=== PATIENT | female | born 1970 | race Caucasian/White ===

== ENCOUNTER 2017-12-18 01:42 | Emergency (ER) | payer OTHER ==
[~2017-12-18] VITALS: Ht 167.6 cm; Wt 131.5 kg
[~2017-12-18 01:42] MED LIST: MTP100TCR PO
[2017-12-18] MEDS ORDERED: AMLO10TA2 (01:56)
[2017-12-18] MEDS ORDERED: HYDR12.5 (01:56)
[2017-12-18 02:14] VITALS: BP 152/98
--- NOTE | 2017-12-18 03:13 | ED Lower Extremity ---
General Chief Complaint: Lower Extremity Stated Complaint: LEFT FOOT INJURY- Nursing Triage Note: left foot pain Nursing Sepsis Screen: No Definite Risk Source: patient Exam Limitations: no limitations History of Present Illness Date Seen by Provider: Dec 18, 2017 Time Seen by Provider: 01:48 Initial Comments This 47-year-old woman presents to the emergency room with injury to the left foot. She accidentally struck her foot on a bed level her while at work. She has pain with weightbearing and walking. The incident happened several hours ago. She denies any other injuries. She had incidental findings of tachycardia in the 120s and significant hypertension on assessment. She also reports having "heartburn" intermittently in recent weeks but denies any chest pain at present. Patient has no known cardiac disease. Allergies and Home Medications Allergies Coded Allergies: No Known Drug Allergies (Unverified , 05/31/13) Patient Home Medication List Home Medication List Reviewed: Yes Constitutional: no symptoms reported EENTM: no symptoms reported Respiratory: no symptoms reported Cardiovascular: see HPI Gastrointestinal: see HPI : No Musculoskeletal: see HPI Skin: no symptoms reported Psychiatric/Neurological: No Symptoms Reported Past Oidtcxe-Iyaxtv-Sokcgj Hx Past Med/Social Hx: Reviewed Nursing Past Med/Soc Hx Patient Social History Alcohol Use: Denies Use Recreational Drug Use: No Smoking Status: Never a Smoker 2nd Hand Smoke Exposure: No Recent Foreign Travel: No Contact w/Someone Who Travel: No Recent Infectious Disease Expo: No Recent Hopitalizations: No Immunizations Up To Date Tetanus Booster (TDap): Unknown Seasonal Allergies Seasonal Allergies: No Past Medical History Surgeries: Yes Section Respiratory: No Cardiac: Yes Hypertension Neurological: No : No Reproductive Disorders: No Sexually Transmitted Disease: No Genitourinary: No Gastrointestinal: No Musculoskeletal: No Endocrine: No HEENT: No Cancer: No Psychosocial: No Integumentary: No Blood Disorders: No Family Medical History Reviewed Nursing Family Hx CAD Under 55 Years Old, Diabetes, Hypertension Physical Exam Vital Signs Vital Signs - First Documented 12/18/17 01:45 Temp 98.2 Pulse 118 Resp 18 B/P (MAP) 193/137 (155) Pulse Ox 100 O2 Delivery Room Air Capillary Refill : Less Than 3 Seconds Height, Weight, BMI Height: 5'6.00" Weight: 290lbs. oz. [id number]; 44.38 BMI Method:Stated General Appearance: WD/WN, no apparent distress, obese HEENT: PERRL/EOMI, normal ENT inspection Neck: normal inspection Cardiovascular: no edema, no murmur, tachycardia Respiratory: lungs clear, normal breath sounds, no respiratory distress, no accessory muscle use Gastrointestinal: normal bowel sounds, soft Legs: bilateral leg non-tender, bilateral leg normal inspection, bilateral leg normal range of motion, bilateral leg no evidence of injury, bilateral leg other (no calf tenderness, negative Thierry) Knees: bilateral knee non-tender, bilateral knee normal inspection, bilateral knee normal range of motion, bilateral knee no evidence of injury Ankles: left ankle non-tender, left ankle normal inspection, left ankle normal range of motion, left ankle no evidence of injury Feet: left foot normal inspection, left foot no evidence of injury, left foot bone tenderness (over the proximal anterior and lateral foot. 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 Thony wrap was applied. I expressed concern to the patient about her tachycardia and hypertension. Both did improve somewhat with rest. Patient denied having any chest pain at the time of the visit. I gave the patient options to workup her tachycardia, hypertension, and chest pain. I expressed my concern that she may have something dangerous or life-threatening. Such conditions that can cause these signs and symptoms include pulmonary embolism, heart disease, etc. Patient expressed understanding. However, she wishes to defer her workup to the outpatient setting. She had already planned to have her blood pressure checked at the [facility] clinic later today. She is concerned about billing problems she may incur if she conducts cardiovascular workup under an occupational health visit. Since patient understands the risks and has a plan to follow-up later today, she was dismissed after evaluation of her x-rays. Diagnostic Imaging Diagonstic Imaging: Xray Plain Films/CT/US/NM/MRI: other (left foot) Comments Left foot x-ray viewed by me. Report not yet available. No acute abnormalities appreciated. Departure Impression Primary Impression: Contusion of left foot Qualified Codes: S90.32XA - Contusion of left foot, initial encounter Additional Impressions: Hypertension Qualified Codes: I10 - Essential (primary) hypertension Tachycardia Chest discomfort Chest pain Disposition: HOME, SELF-CARE Condition: Stable Departure-Patient Inst. Referrals: VELASQUEZ LORENZO (PCP/Family) Primary Care Physician Patient Instructions: Chest Pain, Contusion (DC), High Blood Pressure (DC) Add. Discharge Instructions: You may take aspirin and Tylenol as previously instructed for pain. Elevation, compressive wrapping, and 20 minute intervals of icing may also be helpful. Return to care if symptoms worsen. Please see your primary care office today for your hypertension, high heart rate , and chest discomfort. You should probably also see Dr. Amado (the lopper you saw previously) for a follow-up visit. All discharge instructions reviewed with patient and/or family. Voiced understanding. Copy Copies To 1: JEANETTE MELENDEZ JOSHUA T MD Dec 18, 2017 03:13
[2017-12-18 03:15] VITALS: BP 149/92
--- NOTE | 2017-12-18 07:00 | Diagnostic Imaging Report ---
INDICATION: Left foot injury with pain. AP, oblique and lateral views of the left foot are obtained. FINDINGS: No definite acute fracture is identified. There is no abnormal lytic or sclerotic focus. There is mild plantar calcaneal spurring. Evaluation of the toes is somewhat limited due to flexion. IMPRESSION: No definite acute left foot abnormality is identified. Dictated by: Dictated on workstation # [id number]
== END 2017-12-18 03:20 | disposition home or self-care (01) ==
LOC: EDUNIT# 01:42 → ER 01:45
DX: S90.32XA Contusion of left foot, initial encounter (principal); I10 Essential (primary) hypertension; R00.0 Tachycardia, unspecified; R07.89 Other chest pain; Z82.49 Family history of ischemic heart disease and other diseases of the circulatory system; Z87.59 Personal history of other complications of pregnancy, childbirth and the puerperium; W22.03XA Walked into furniture, initial encounter; Y92.59 Other trade areas as the place of occurrence of the external cause; Y99.0 Civilian activity done for income or pay
CPT/HCPCS: 73630

== ENCOUNTER 2019-05-16 01:12 | Emergency (ER) | payer OTHER ==
[~2019-05-16] VITALS: Ht 170.1 cm; Wt 131.5 kg
[~2019-05-16 01:12] MED LIST changes: +AMLO10TA7; +HYDR12.5
--- NOTE | 2019-05-16 01:36 | ED Fall/Injury ---
General Chief Complaint: Trauma-Non Activation Stated Complaint: FELL AT WORK Source: patient Exam Limitations: no limitations History of Present Illness Date Seen by Provider: May 16, 2019 Time Seen by Provider: 01:18 Initial Comments Patient presents to ER by private conveyance from work at the [employer] in [facility]. About 15 minutes after midnight she was walking the trash out both of her feet slid out from behind her and she fell backwards onto her back. She did not strike her head nor she lose consciousness. She's not on any blood thinners. She has not taken anything for pain or had anything tonight. She does take Norvasc for hypertension. She's in some pain in her upper back between her shoulder blades and in her low back. She has no previous history of back pain fractures or surgery. She's been having some nausea and was being worked up outpatient by her primary care office at [facility] for possible gallbladder disease. She's not having any nausea presently. Allergies and Home Medications Allergies Coded Allergies: No Known Drug Allergies (Unverified , 05/31/13) Patient Home Medication List Home Medication List Reviewed: Yes Review of Systems Review of Systems Constitutional: No chills, No diaphoresis Eyes: Denies Blindness, Denies Drainage Ears, Nose, Mouth, Throat: denies ear pain, denies mouth pain Respiratory: No cough, No hemoptysis Cardiovascular: No chest pain, No palpitations Gastrointestinal: No abdominal pain, No nausea, No vomiting, No other All Other Systems Reviewed Negative Unless Noted: Yes Past Kvjqexo-Mqwsfh-Gbsbyf Hx Patient Social History Alcohol Use: Denies Use Recreational Drug Use: No Smoking Status: Never a Smoker 2nd Hand Smoke Exposure: No Recent Foreign Travel: No Contact w/Someone Who Travel: No Recent Hopitalizations: No Immunizations Up To Date Tetanus Booster (TDap): Unknown Seasonal Allergies Seasonal Allergies: No Past Medical History Surgeries: Yes Section Respiratory: No Cardiac: Yes Hypertension Neurological: No Reproductive Disorders: No Sexually Transmitted Disease: No Genitourinary: No Gastrointestinal: No Musculoskeletal: No Endocrine: No HEENT: No Cancer: No Psychosocial: No Integumentary: No Blood Disorders: No Family Medical History CAD Under 55 Years Old, Diabetes, Hypertension Physical Exam Vital Signs Vital Signs - First Documented 05/16/19 01:22 Temp 36.0 Pulse 84 Resp 20 B/P (MAP) 192/129 (150) Pulse Ox 99 O2 Delivery Room Air Capillary Refill : Height, Weight, BMI Height: 5'6.00" Weight: 290lbs. oz. 131.860342qy; 44.38 BMI Method:Stated General Appearance: WD/WN, no apparent distress HEENT: PERRL/EOMI, pharynx normal Neck: non-tender, full range of motion, supple, normal inspection Cardiovascular: normal peripheral pulses, regular rate, rhythm Respiratory: no respiratory distress, no accessory muscle use Back: vertebral tenderness (T8 through T10 as well as around L3 through L5 midl ine tender palpation.) Extremities: normal range of motion, normal inspection Neurologic/Psychiatric: alert, normal mood/affect, oriented x 3 Skin: normal color, warm/dry Progress/Results/Core Measures Results/Orders My Orders Orders - VERA CAMPBELL Thoracic Spine, 2 Views Only (05/16/19 01:28) Lumbar Spine - 2-3 Views (05/16/19 01:28) Vital Signs/I&O 05/16/19 05/16/19 01:22 01:22 Temp 36.0 36.0 Pulse 84 84 Resp 20 20 B/P (MAP) 192/129 (150) 192/129 (150) Pulse Ox 99 99 O2 Delivery Room Air Progress Progress Note : Time: 01:33 Progress Note Patient has very mild discomfort. Plan to obtain flat plate films to rule out fracture. She has declined anything for pain. We'll have her follow-up with primary care as necessary. Diagnostic Imaging Diagonstic Imaging: Xray Plain Films/CT/US/NM/MRI: other (thoracolumbar spine) Comments No acute osseous abnormality or malalignment. Reviewed: Reviewed by Me Departure Impression Primary Impression: Fall Qualified Codes: W19.XXXA - Unspecified fall, initial encounter Additional Impressions: Acute upper back pain Lower back pain Qualified Codes: M54.5 - Low back pain Disposition: 01 HOME, SELF-CARE Condition: Stable Departure-Patient Inst. Decision time for Depature: 02:09 Referrals: [facility] (PCP) Primary Care Physician VELASQUEZ LORENZO (Family) Primary Care Physician Patient Instructions: Low Back Pain (DC), Upper Back Pain Add. Discharge Instructions: Heating pads, topical creams and back braces are useful for back pain. Tylenol 1000 mg every 8 hours as needed for pain. Ibuprofen 800 mg every 8 hours as needed for pain. Continue taking her medications for blood pressure and follow-up with primary care. All discharge instructions reviewed with patient and/or family. Voiced understanding. Work/School Note: Work Release Form Date Seen in the Emergency Department: May 16, 2019 Return to Work: May 17, 2019 Restrictions: Need Release from Doctor Other Restrictions Listed Below: Do not lift, push or pull greater than 40 pounds until 05/23/19. VERA CAMPBELL May 16, 2019 01:36
[2019-05-16 02:10] VITALS: BP 145/97
--- NOTE | 2019-05-16 06:36 | Diagnostic Imaging Report ---
CLINICAL HISTORY: Fall. Back pain. COMPARISON: None TECHNIQUE: 2 views of the thoracic spine. FINDINGS: There is no acute fracture or dislocation of the thoracic spine. There is slight right convexity curvature of the midthoracic spine. No significant degenerative changes are present. No focal osseous lesions. The included chest and soft tissues are unremarkable. IMPRESSION: 1. No acute fracture or dislocation of the thoracic spine. Dictated by: Dictated on workstation # [id number]
--- NOTE | 2019-05-16 06:41 | Diagnostic Imaging Report ---
EXAMINATION: Lumbosacral spine 2 or 3 views HISTORY: Fall. Back pain. COMPARISON: None available. FINDINGS: There is no acute fracture or dislocation of the lumbar spine. There is grade 1 anterolisthesis of L5 on S1. The vertebral body heights are well maintained. Mild degenerative changes are present in the lumbar spine. The included soft tissues are unremarkable. IMPRESSION: 1. No acute fracture or dislocation in the lumbar spine. 2. Grade 1 anterolisthesis of L5 on S1. Dictated by: Dictated on workstation # [id number]
== END 2019-05-16 02:10 | disposition home or self-care (01) ==
LOC: EDUNIT# 01:12 → ER 01:16
DX: M54.6 Pain in thoracic spine (principal); M54.5 Low back pain; I10 Essential (primary) hypertension; Z82.49 Family history of ischemic heart disease and other diseases of the circulatory system; W01.0XXA Fall on same level from slipping, tripping and stumbling without subsequent striking against object, initial encounter
CPT/HCPCS: 72070; 72100

== ENCOUNTER 2019-06-07 23:52 | Emergency (ER) | payer OTHER ==
[~2019-06-07] VITALS: Ht 170 cm; Wt 122.3 kg
[2019-06-08] MEDS ORDERED: 1/2 NS IV SOLUTION 1,000 ML IV SCH ×2 (00:15→01:00)
[2019-06-08] MEDS ORDERED: ACETAMINOPHEN 500 MG TAB (TYLENOL) PO ONE (00:15)
[2019-06-08] MEDS ORDERED: IBUPROFEN 800 MG (MOTRIN) TAB PO ONE (00:15)
[2019-06-08] MEDS ORDERED: ASPIRIN 81 MG CHEW (CHILDREN'S ASA) PO ONE (00:15)
[2019-06-08 00:24] LABS: BASOPHILS # (AUTO) 0.1 10^3/uL (0.0-0.1); BASOPHILS % (AUTO) 1 % (0-10); EOSINOPHILS % (AUTO) 0 % (0-10); HEMATOCRIT 45 % (35-52); HEMOGLOBIN 14.4 G/DL (11.5-16.0); LYMPHOCYTES # (AUTO) 1.8 X 10^3 (1.0-4.0); LYMPHOCYTES % (AUTO) 21 % (12-44); MEAN CORPUSCULAR HEMOGLOBIN 28 PG (25-34); MEAN CORPUSCULAR HGB CONC 32 G/DL (32-36); MEAN CORPUSCULAR VOLUME 87 FL (80-99); MEAN PLATELET VOLUME 10.2 FL (7.4-10.4); MONOCYTES # (AUTO) 0.8 X 10^3 (0.0-1.0); MONOCYTES % (AUTO) 9 % (0-12); NEUTROPHILS # (AUTO) 5.7 X 10^3 (1.8-7.8); NEUTROPHILS % (AUTO) 69 % (42-75); PLATELET COUNT 232 10^3/uL (130-400); RED CELL DISTRIBUTION WIDTH 14.7 % (10.0-14.5); WHITE BLOOD COUNT 8.3 10^3/uL (4.3-11.0)
--- NOTE | 2019-06-08 00:29 | ED General ---
General Chief Complaint: Chest Pain Stated Complaint: CP Source of Information: Patient History of Present Illness Date Seen by Provider: Jun 08, 2019 Time Seen by Provider: 00:02 Initial Comments PT ARRIVES VIA POV FROM HOME PT WITH MULTIPLE COMPLAINTS STATES SHE WAS SEEN AT [facility] WALK IN CLINIC THIS AM--PT STATES "THEY TOLD ME I HAD FLU LIKE SYMPTOMS" --WAS NOT TESTED FOR THE FLU AND NO RX GIVEN STATES SHE WAS TESTED FOR STREP AND IT WAS NEGATIVE--NO RX GIVEN STATES SHE HAS BEEN SICK SINCE Thursday06/03/19--SORE THROAT, "DIFFICULTY EATING" DUE PT THROAT PAIN, HAS HAD SLIGHT COUGH, HAS HAD SUBJECTIVE FEVER--STATES "I'VE BEEN SHAKING" --STATES SHE NEVER CHECKS HER TEMP. TEMP IS 102.1 ON ARRIVAL HERE HAS HAD SHORTNESS OF BREATH WITH EXERTION EARLIER TODAY --"TIL AND HOUR AGO" HAS HAD "CHEST PAIN"--POINTS TO LOWER STERNAL/EPIGASTRIC AREA, AND STATES "HAD C RAMPING IN MY RIBS TIL AN HOUR AGO" C/O GENERALIZED WEAKNESS STATES HER STOMACH HAS BEEN HURTING TODAY--"DULL ACHE" --WAS WORSE LAST PM ALSO HAD A BREAK OUT OF PIMPLES ON HER CHIN A FEW DAYS AGO, POPPED THEM, AND NOW SHE HAS MANY MORE AND THEY HAVE BEEN DRAINING--BREANNA THEM COVERED WITH A BANDAID STATES SHE WAS ON PREDNISONE RECENTLY FOR BACK PAIN--FINISHED OVER A WEEK AGO. NO PROBLEMS WITH TAKING THE MEDICATION STATES SHE FELL AT WORK ( WAS SEEN HERE 05/16/19 ) AND WAS REFERRED TO [facility] FOR BACK PAIN PT STATES SHE IS SUPPOSED TO BE ON BLOOD PRESSURE MEDICATION, BUT "RAN OUT" OVER 6 MONTHS AGO, DUE TO NO MORE REFILLS, BECAUSE SHE HAD NOT FOLLOWED UP PT HAS BEEN TO [facility] A FEW TIMES THIS MONTH FOR VARIOUS COMPLAINTS, INCLUDING NAUSEA, BUT DID NOT HAVE HER BP MEDICATIONS REFILLED. WAS GIVEN RX'S FOR PROMETHAZINE AND PANTOPRAZOLE ON 05/14/19 BY [facility]. HAS ANOTHER APPOINTMENT 06/09/19 FOR FOLLOW UP APPOINTMENT. LMP--1 WEEK AGO, NO CONTROL. HAS NOT TAKEN ANYTHING FOR SYMPTOMS TODAY. PCP: [facility]. Allergies and Home Medications Allergies Coded Allergies: No Known Drug Allergies (Unverified , 05/31/13) Home Medications Cefprozil 500 Mg Tablet, 500 MG PO BID Prescribed by: QUINTON LUNDBERG on 06/08/19114 Mupirocin 1 Gm Oin.pf.elijah, 1 GM TP BID Prescribed by: QUINTON LUNDBERG on 06/08/19114 Prednisone 20 Mg Tab, 40 MG PO DAILY Prescribed by: QUINTON LUNDBERG on 06/08/19114 Patient Home Medication List Home Medication List Reviewed: Yes Review of Systems Review of Systems Constitutional: see HPI, chills, fever EENTM: see HPI, throat pain; No nose congestion Respiratory: cough, dyspnea on exertion, short of breath Cardiovascular: see HPI, chest pain; No edema, No palpitations, No syncope Gastrointestinal: see HPI, abdominal pain; No diarrhea; nausea; No vomiting Genitourinary: no symptoms reported Musculoskeletal: see HPI, back pain Skin: see HPI, rash Psychiatric/Neurological: No Symptoms Reported Hematologic/Lymphatic: No Symptoms Reported Immunological/Allergic: no symptoms reported Past Kscfqdf-Fngebm-Ayijig Hx Past Med/Social Hx: Reviewed and Corrections made Patient Social History Alcohol Use: Denies Use Recreational Drug Use: No Smoking Status: Never a Smoker 2nd Hand Smoke Exposure: No Recent Foreign Travel: No Contact w/Someone Who Travel: No Recent Hopitalizations: No Immunizations Up To Date Tetanus Booster (TDap): Unknown PED Vaccines UTD: Yes Date of Influenza Vaccine: Feb 01, 2019 Seasonal Allergies Seasonal Allergies: No Past Medical History Surgeries: Yes ( X 1 ) Section Respiratory: No Cardiac: Yes (NON-COMPLIANT WITH MEDICATIONS AND FOLLOW UP APPOINTMENTS) Hypertension Neurological: No Reproductive Disorders: No Sexually Transmitted Disease: No Genitourinary: No Gastrointestinal: No Musculoskeletal: No Endocrine: Yes (MORBID OBESITY) HEENT: No Cancer: No Psychosocial: No Integumentary: No Blood Disorders: No Family Medical History CAD Under 55 Years Old, Diabetes, Hypertension Physical Exam Vital Signs Vital Signs - First Documented 06/08/19 00:01 Temp 38.9 Pulse 116 Resp 17 B/P (MAP) 176/108 (130) Pulse Ox 98 O2 Delivery Room Air Capillary Refill : Height, Weight, BMI Height: 5'6.00" Weight: 290lbs. oz. 131.624680nz; 45.00 BMI Method:Stated General Appearance: No Apparent Distress, Obese, Other (DOES NOT APPEAR ILL, AMBULATES WITHOUT DIFFICULTY. IS NON-CHALANT ABOUT HER SYMPTOMS) HEENT: PERRL/EOMI, TMs Normal, Pharyngeal Erythema; No Photophobia, No Tonsillar Exudate, No Tonsillar Enlargement Neck: Full Range of Motion, Normal Inspection, Non Tender, Supple Respiratory: Normal Breath Sounds, No Accessory Muscle Use, No Respiratory Distress, Other (MILD LOWER STERNAL AND XYPOHID TENDERNESS. 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 ) Focused Exam Lactate Level 06/08/19 00:12: Lactic Acid Level 1.30 Lactic Acid Level Laboratory Tests Test 06/08/19 00:12 Lactic Acid Level 1.30 MMOL/L (0.50-2.00) Progress/Results/Core Measures Suspected Sepsis SIRS Temperature: Pulse: Respiratory Rate: Laboratory Tests 06/08/19 00:12: White Blood Count 8.3 Blood Pressure / Mean: 06/08/19 00:12: Lactic Acid Level 1.30 Laboratory Tests 06/08/19 00:12: Creatinine 0.85, INR Comment 1.0, Platelet Count 232, Total Bilirubin 0.5 Results/Orders Lab Results Laboratory Tests Test 06/08/19 00:11 06/08/19 00:12 06/08/19 02:30 Range/Units Group A Streptococcus Screen NEGATIVE NEGATIVE White Blood Count 8.3 4.3-11.0 10^3/uL Red Blood Count 5.15 4.35-5.85 10^6/uL Hemoglobin 14.4 11.5-16.0 G/DL Hematocrit 45 35-52 % Mean Corpuscular Volume 87 80-99 FL Mean Corpuscular Hemoglobin 28 25-34 PG Mean Corpuscular Hemoglobin Concent 32 32-36 G/DL Red Cell Distribution Width 14.7 H 10.0-14.5 % Platelet Count 232 130-400 10^3/uL Mean Platelet Volume 10.2 7.4-10.4 FL Neutrophils (%) (Auto) 69 42-75 % Lymphocytes (%) (Auto) 21 12-44 % Monocytes (%) (Auto) 9 0-12 % Eosinophils (%) (Auto) 0 0-10 % Basophils (%) (Auto) 1 0-10 % Neutrophils # (Auto) 5.7 1.8-7.8 X 10^3 Lymphocytes # (Auto) 1.8 1.0-4.0 X 10^3 Monocytes # (Auto) 0.8 0.0-1.0 X 10^3 Eosinophils # (Auto) 0.0 0.0-0.3 10^3/uL Basophils # (Auto) 0.1 0.0-0.1 10^3/uL Prothrombin Time 13.4 12.2-14.7 SEC INR Comment 1.0 0.8-1.4 Activated Partial Thromboplast Time 33 24-35 SEC Sodium Level 137 135-145 MMOL/L Potassium Level 3.4 L 3.6-5.0 MMOL/L Chloride Level 101 98-107 MMOL/L Carbon Dioxide Level 22 21-32 MMOL/L Anion Gap 14 5-14 MMOL/L Blood Urea Nitrogen 13 7-18 MG/DL Creatinine 0.85 0.60-1.30 MG/DL Estimat Glomerular Filtration Rate > 60 BUN/Creatinine Ratio 15 Glucose Level 99 70-105 MG/DL Lactic Acid Level 1.30 0.50-2.00 MMOL/L Calcium Level 9.4 8.5-10.1 MG/DL Corrected Calcium 9.1 8.5-10.1 MG/DL Magnesium Level 2.1 1.6-2.4 MG/DL Total Bilirubin 0.5 0.1-1.0 MG/DL Aspartate Amino Transf (AST/SGOT) 15 5-34 U/L Alanine Aminotransferase (ALT/SGPT) 26 0-55 U/L Alkaline Phosphatase 123 40-136 U/L Total Creatine Kinase 45 29-168 U/L Creatine Kinase MB 0.9 <6.6 NG/ML Myoglobin 31.3 10.0-92.0 NG/ML Troponin I < 0.028 <0.028 NG/ML B-Type Natriuretic Peptide < 10.0 <100.0 PG/ML Total Protein 8.2 6.4-8.2 GM/DL Albumin 4.4 3.2-4.5 GM/DL Amylase Level 24 L 25-125 U/L Lipase 8 8-78 U/L Monoscreen NEGATIVE NEGATIVE Urine Color YELLOW Urine Clarity CLOUDY Urine pH 6.0 5-9 Urine Specific [place] 1.015 L 1.016-1.022 Urine Protein TRACE H NEGATIVE Urine Glucose (UA) NEGATIVE NEGATIVE Urine Ketones 3+ H NEGATIVE Urine Nitrite NEGATIVE NEGATIVE Urine Bilirubin 1+ H NEGATIVE Urine Urobilinogen 0.2 < = 1.0 MG/DL Urine Leukocyte Esterase 1+ H NEGATIVE Urine RBC (Auto) 2+ H NEGATIVE Urine RBC RARE /HPF Urine WBC 25-50 H /HPF Urine Squamous Epithelial Cells 25-50 H /HPF Urine Crystals NONE /LPF Urine Bacteria MODERATE H /HPF Urine Casts NONE /LPF Urine Mucus NEGATIVE /LPF Urine Culture Indicated CULTURE PENDING Micro Results Microbiology 06/08/19 Influenza Types A,B Antigen (BRAVO) - Final, Complete My Orders Orders - QUINTON LUNDBERG DO Cbc With Automated Diff (06/08/19 00:02) Magnesium (06/08/19 00:02) Chest 1 View, Ap/Pa Only (06/08/19 00:02) Ekg Tracing (06/08/19 00:02) Comprehensive Metabolic Panel (06/08/19 00:02) Myoglobin Serum (06/08/19 00:02) Protime With Inr (06/08/19 00:02) Partial Thromboplastin Time (06/08/19 00:02) O2 (06/08/19 00:02) Monitor-Rhythm Ecg Trace Only (06/08/19 00:02) Ed Iv/Invasive Line Start (06/08/19 00:02) Creatine Kinase (06/08/19 00:02) Creatine Kinase Mb (06/08/19 00:02) Lipase (06/08/19 00:02) Amylase (06/08/19 00:02) BNP (06/08/19 00:02) Aspirin Chewable Tablet (Baby Aspirin Ch (06/08/19 00:15) Lactic Acid Analyzer (06/08/19 00:02) Blood Culture (06/08/19 00:02) Influenza A And B Antigens (06/08/19 00:02) Acetaminophen Tablet (Tylenol Tablet) (06/08/19 00:15) Ibuprofen Tablet (Motrin Tablet) (06/08/19 00:15) Monotest (06/08/19 00:13) Rapid Strep A Screen (06/08/19 00:13) Urinalysis (06/08/19 00:13) Urine Culture (06/08/19 00:13) Vital Signs Adult Sepsis Patie Q15M (06/08/19 00:13) Remove Rings In Anticipation O (06/08/19 00:13) 1/2 Ns Iv Solution (0.45% Sodium Chlorid (06/08/19 00:15) Troponin I (06/08/19 00:12) 1/2 Ns Iv Solution (0.45% Sodium Chlorid (06/08/19 01:00) Ceftriaxone For Iv Use (Rocephin For I (06/08/19 01:15) Rx-Mupirocin 2% Oint (Rx-Bactroban) (06/08/19 01:04) Wound Dressing-Ed (06/08/19 01:22) Medications Given in ED Current Medications Medications Dose Ordered Sig/Ja Route Start Time Stop Time Status Last Admin Dose Admin Acetaminophen 1,000 mg ONCE ONCE PO 06/08/19 00:15 06/08/19 00:16 DC 06/08/19 00:40 1,000 MG Aspirin 324 mg ONCE ONCE PO 06/08/19 00:15 06/08/19 00:16 DC 06/08/19 00:15 324 MG Ceftriaxone Sodium 1000 mg/ Sterile Water 10 ml @ 200 mls/hr ONCE ONCE IV 06/08/19 01:15 06/08/19 01:17 DC 06/08/19 01:30 200 MLS/HR Ibuprofen 800 mg ONCE ONCE PO 06/08/19 00:15 06/08/19 00:16 DC 06/08/19 00:40 800 MG Vital Signs/I&O 06/08/19 06/08/19 06/08/19 06/08/19 00:01 00:07 00:40 00:40 Temp 38.9 38.9 38.9 Pulse 116 Resp 17 B/P (MAP) 176/108 (130) Pulse Ox 98 O2 Delivery Room Air Room Air 06/08/19 06/08/19 00:49 02:33 Temp 38.9 37.2 Pulse 105 89 Resp 18 17 B/P (MAP) 153/91 145/84 (104) Pulse Ox 99 86 O2 Delivery Room Air Room Air Capillary Refill : Progress Note : Progress Note GIVEN IV FLUIDS, TYLENOL AND MOTRIN WITH IMPROVEMENT IN SYMPTOMS--STATES "I FEEL LIKE A NEW PERSON" PAIN BETTER HEART RATE AND BLOOD PRESSURE DOWN TEMP DOWN NO COMPLAINT OF CHEST OR ABDOMINAL PAIN FOR REMAINDER OF ER STAY VOIDED AFTER 2 LITERS OF FLUIDS ECG Initial ECG Impression Date: Jun 08, 2019 Initial ECG Impression Time: 00:09 Initial ECG Rate: 110 Initial ECG Rhythm: S.Tach Initial ECG Impression: Nonspecific Changes (INFERIOR Q WAVES) Diagnostic Imaging Comments CXR--NO ACUTE PROCESS, PENDING RADIOLOGIST REVIEW Reviewed: Reviewed by Me Departure Impression Primary Impression: Pharyngitis Additional Impressions: Influenza-like illness IMPETIGO OF CHIN Uncontrolled hypertension Epigastric abdominal pain UTI (urinary tract infection) Disposition: HOME, SELF-CARE Condition: Improved Departure-Patient Inst. Referrals: [facility] (PCP) Primary Care Physician VELASQUEZ LORENZO (Family) Primary Care Physician Patient Instructions: Acute Abdomen (Belly Pain), Adult (DC), Controlling Your Blood Pressure Through Lifestyle, Flu, Adult (DC), High Blood Pressure (DC), Impetigo (DC), Sore Throat, Adult (DC) Add. Discharge Instructions: LOTS OF CLEAR LIQUIDS--WATER, BROTH, JELLO, GATORADE, POPSICLES BRATS DIET--BANANAS, RICE, APPLESAUCE, TOAST, SALTINES TYLENOL 1 GRAM/ MOTRIN 800 MG 4 TIMES A DAY NEEDED FOR PAIN OR FEVER TAKE YOUR PANTOPRAZOLE EVERY DAY, AND PROMETHAZINE NEEDED FOR NAUSEA KEEP YOUR APPOINTMENT THIS WEEK FOR FOLLOW UP All discharge instructions reviewed with patient and/or family. Voiced understanding. Scripts Prednisone (Prednisone) 20 Mg Tab 40 MG PO DAILY for 3 Days, #6 TAB Prov: QUINTON LUNDBERG DO 06/08/19 Mupirocin (Mupirocin) 1 Gm Oin.pf.elijah 1 GM TP BID, #22 TUBE Prov: QUINTON LUNDBERG DO 06/08/19 Cefprozil (Cefprozil) 500 Mg Tablet 500 MG PO BID, #20 TAB Prov: QUINTON LUNDBERG DO 06/08/19 QUINTON LUNDBERG DO Jun 08, 2019 00:29
[2019-06-08 00:39] LABS: PROTHROMBIN TIME PATIENT 13.4 SEC (12.2-14.7)
[2019-06-08 00:50] LABS: ALANINE AMINOTRANSFERASE 26 U/L (0-55); ALBUMIN 4.4 GM/DL (3.2-4.5); ALKALINE PHOSPHATASE 123 U/L (40-136); AMYLASE 24 U/L (25-125); BILIRUBIN,TOTAL 0.5 MG/DL (0.1-1.0); BUN/CREATININE RATIO 15; CALCIUM 9.4 MG/DL (8.5-10.1); CARBON DIOXIDE 22 MMOL/L (21-32); CHLORIDE 101 MMOL/L (98-107); CREATINE KINASE 45 U/L (29-168); CREATININE SERUM 0.85 MG/DL (0.60-1.30); GFR ESTIMATED > 60; GLUCOSE 99 MG/DL (70-105); LIPASE 8 U/L (8-78); MAGNESIUM 2.1 MG/DL (1.6-2.4); POTASSIUM 3.4 MMOL/L (3.6-5.0); SODIUM 137 MMOL/L (135-145); TOTAL PROTEIN 8.2 GM/DL (6.4-8.2)
[2019-06-08 00:57] LABS: CREATINE KINASE MB 0.9 NG/ML (<6.6)
[2019-06-08] MEDS ORDERED: RX-MUPIROCIN (BACTROBAN) 2% OINT 22 GM TUBE TOP STA (01:04)
[2019-06-08] MEDS ORDERED: PRD20T PO (01:15)
[2019-06-08] MEDS ORDERED: MUPI1OIN6 TP (01:15)
[2019-06-08] MEDS ORDERED: CEFP500T4 PO (01:15)
[2019-06-08] MEDS ORDERED: cefTRIAXone FOR IV USE 1,000 MG in WATER (STERILE) FOR INJECTION 10 ML IV ONE (01:15)
[2019-06-08 02:33] VITALS: BP 145/84
[2019-06-08 02:44] LABS: BILIRUBIN,URINE 1+ (NEGATIVE); CLARITY,URINE CLOUDY; COLOR,URINE YELLOW; GLUCOSE, URINE (UA) NEGATIVE (NEGATIVE); KETONES,URINE 3+ (NEGATIVE); LEUKOCYTE ESTERASE ,URINE 1+ (NEGATIVE); NITRITE,URINE NEGATIVE (NEGATIVE); PROTEIN,URINE TRACE (NEGATIVE)
[2019-06-08 03:01] LABS: BACTERIA,URINE MODERATE /HPF; RBC,URINE RARE /HPF; SQUAMOUS EPITHELIAL CELL,UR 25-50 /HPF; WBC,URINE 25-50 /HPF
[2019-06-08 03:10] VITALS: BP 145/84
--- NOTE | 2019-06-08 06:06 | Diagnostic Imaging Report ---
INDICATION: Cough and congestion. FINDINGS: Portable chest. The lungs are well-aerated and clear. Heart is not enlarged. No pulmonary edema or hilar adenopathy. No pneumothorax or pleural effusion. No bony abnormalities. IMPRESSION: Normal portable chest. Dictated by: Dictated on workstation # [id number]
== END 2019-06-08 03:11 | disposition home or self-care (01) ==
LOC: EDUNIT# 23:52 → ER 23:53
DX: J11.1 Influenza due to unidentified influenza virus with other respiratory manifestations (principal); L01.00 Impetigo, unspecified; I10 Essential (primary) hypertension; R10.13 Epigastric pain; N39.0 Urinary tract infection, site not specified; E66.01 Morbid (severe) obesity due to excess calories; Z91.14 Patient's other noncompliance with medication regimen; Z68.41 Body mass index [BMI] 40.0-44.9, adult; Z82.49 Family history of ischemic heart disease and other diseases of the circulatory system
CPT/HCPCS: 36415; 71045; 80053; 81000; 82150; 82550; 82553; 83605; 83690; 83735; 83874; 83880; 84484; 85025; 85610; 85730; 86308; 87040; 87088; 87430; 87804; 93005; 93041

== ENCOUNTER → 2019-07-12 | Outpatient (CLI) | payer OTHER ==
[~2019-07-12] MED LIST changes: +CEFP500T4 PO; +MUPI1OIN6 TP; +PRD20T PO
--- NOTE | 2019-07-12 12:57 | Diagnostic Imaging Report ---
INDICATION: Routine screening. No prior mammograms are available for comparison. This is a baseline study. 2-D and 3-D bilateral screening mammography was performed with CAD. Scattered fibroglandular densities are identified bilaterally. Intraparenchymal lymph node in the outer left breast is noted. No spiculated mass or malignant-appearing microcalcifications are seen. Axillae are unremarkable. IMPRESSION: BI-RADS Category 2 No mammographic features suspicious for malignancy are identified. ACR BI-RADS Category 2: Benign findings. Result letter will be mailed to the patient. Note: At least 10% of breast cancer is not imaged by mammography. Dictated by: Dictated on workstation # [id number]
== END ==
LOC: RAD 08:13
PROVIDERS: ATTEND Nurse Practitioner Primary Care
DX: Z12.31 Encounter for screening mammogram for malignant neoplasm of breast (principal)
CPT/HCPCS: 77067

== ENCOUNTER 2023-03-31 08:14 | Emergency (ER) | payer OTHER ==
[~2023-03-31] VITALS: Ht 167.7 cm; Wt 99.7 kg
[~2023-03-31 08:14] MED LIST changes: +AMLO-251; -AMLO10TA7
--- NOTE | 2023-03-31 11:29 | ED General ---
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 STATES SHE WAS CHANGING A CATHETER THIS MORNING AND GOT BLOOD AND URINE IN HER EYES. STATES WASHED EYES OUT FOR 15 MINUTES. STATES HAPPENED AROUND 4AM. 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 Patient states around 345 this morning she was changing out a Clemens catheter. She states when she pulled out the catheter urine and blood got into both of her eyes. She immediately irrigated with saline for 15 minutes. She did have some eye irritation but that did improve. She states she is up-to-date on her hepatitis vaccines. She is not up-to-date on her tetanus. She has no current complaint. Was sent to the ED for blood workup. She states the patient has no known history of HIV or hepatitis. She denies of any visual changes, chest pain, shortness of breath, nausea, vomiting, diarrhea. She denies of any exposure to the mouth. She denies of any needlestick. (IAIN HAMILTON) Allergies and Home Medications Allergies Coded Allergies: No Known Drug Allergies (Unverified , 05/31/13) Patient Home Medication List Home Medication List Reviewed: Yes (IAIN HAMILTON) Amlodipine Besylate (Amlodipine Besylate) 10 Mg Tablet, (Reported) Entered as Reported by: CHRISS PEÑA on 12/18/17155 Cefprozil (Cefprozil) 500 Mg Tablet, 500 MG PO BID Prescribed by: QUINTON LUNDBERG on 06/08/19114 Hydrochlorothiazide (Hydrochlorothiazide) 12.5 Mg Capsule, (Reported) Entered as Reported by: CHRISS PEÑA on 12/18/17155 Mupirocin (Mupirocin) 1 Gm Oin.pf.elijah, 1 GM TP BID Prescribed by: QUINTON LUNDBERG on 06/08/19114 Prednisone (Prednisone) 20 Mg Tab, 40 MG PO DAILY Prescribed by: QUINTON LUNDBERG on 06/08/19114 Review of Systems Review of Systems Constitutional: No chills, No diaphoresis, No fever, No malaise, No weakness EENTM: other (Eye irritation); No ear pain, No blurred vision, No double vision, No mouth pain, No mouth swelling, No throat pain, No throat swelling Respiratory: No cough, No dyspnea on exertion Cardiovascular: No chest pain, No edema, No syncope Gastrointestinal: No abdominal pain, No diarrhea, No nausea, No vomiting Genitourinary: No decreased output, No discharge Musculoskeletal: No back pain, No joint pain Skin: No change in color, No change in hair/nails Hematologic/Lymphatic: Denies Anemia (IAIN HAMILTON) All Other Systems Reviewed Negative Unless Noted: Yes (IAIN HAMILTON) Past Fuoetxp-Kujqwl-Rkwwiy Hx Patient Social History Tobacco Use?: No Use of E-Cig and/or Vaping dev: No Substance use?: No Alcohol Use?: No Pt feels they are or have been: No (IAIN HAMILTON) Immunizations Up To Date Tetanus Booster (TDap): Unknown PED Vaccines UTD: Yes (IAIN HAMILTON) Seasonal Allergies Seasonal Allergies: No (IAIN HAMILTON) Past Medical History Surgeries: Yes ( X 1 ) Section Respiratory: No Cardiac: Yes (NON-COMPLIANT WITH MEDICATIONS AND FOLLOW UP APPOINTMENTS) Hypertension Neurological: No Reproductive Disorders: No Sexually Transmitted Disease: No Genitourinary: No Gastrointestinal: No Musculoskeletal: No Endocrine: Yes (MORBID OBESITY) HEENT: No Cancer: No Psychosocial: No Integumentary: No Blood Disorders: No (IAIN HAMILTON) Family Medical History CAD Under 55 Years Old, Diabetes, Hypertension (IAIN HAMILTON) Physical Exam Vital Signs Vital Signs - First Documented 03/31/23 08:23 Temp 36.0 Pulse 92 Resp 16 B/P (MAP) 196/118 (144) Pulse Ox 99 O2 Delivery Room Air (MICKI ELIZABETH MD) Vital Signs Capillary Refill : (IAIN HAMILTON) Height, Weight, BMI Height: 5'6.00" Weight: 290lbs. oz. 131.055442mx; 35.00 BMI Method:Stated General Appearance: No Apparent Distress, WD/WN Eyes: Bilateral Eye Normal Inspection, Bilateral Eye PERRL, Bilateral Eye EOMI HEENT: PERRL/EOMI, TMs Normal, Normal ENT Inspection, Pharynx Normal Neck: Full Range of Motion, Normal Inspection, Non Tender, Supple Respiratory: Chest Non Tender, Lungs Clear, Normal Breath Sounds, No Accessory Muscle Use, No Respiratory Distress Cardiovascular: Regular Rate, Rhythm, No Edema, No Gallop, No JVD, No Murmur Gastrointestinal: Normal Bowel Sounds, No Organomegaly, No Pulsatile Mass, Non Tender Back: Normal Inspection, No CVA Tenderness Extremity: Normal Capillary Refill, Normal Inspection Neurologic/Psychiatric: Alert, Oriented x3, No Motor/Sensory Deficits, Normal Mood/Affect, 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 II-XII Norm as Tested Skin: Normal Color, Warm/Dry (IAIN HAMILTON) HEENT: Other (Erythematous lesion on the right lower anterior gums just beneath the right lower incisor) (MICKI ELIZABETH MD) Progress/Results/Core Measures Suspected Sepsis SIRS Temperature: Pulse: 92 Respiratory Rate: 16 Laboratory Tests 03/31/23 11:43: White Blood Count 6.2 Blood Pressure 196 /118 Mean: 144 Laboratory Tests 03/31/23 11:43: Creatinine 0.87, Platelet Count 208, Total Bilirubin 0.5 (IAIN HAMILTON) Results/Orders Lab Results Laboratory Tests Test 03/31/23 11:43 Range/Units White Blood Count 6.2 4.3-11.0 10^3/uL Red Blood Count 4.90 3.80-5.11 10^6/uL Hemoglobin 15.0 11.5-16.0 g/dL Hematocrit 46 35-52 % Mean Corpuscular Volume 93 80-99 fL Mean Corpuscular Hemoglobin 31 25-34 pg Mean Corpuscular Hemoglobin Concent 33 32-36 g/dL Red Cell Distribution Width 12.4 10.0-14.5 % Platelet Count 208 130-400 10^3/uL Mean Platelet Volume 8.7 L 9.0-12.2 fL Immature Granulocyte % (Auto) 0 % Neutrophils (%) (Auto) 67 42-75 % Lymphocytes (%) (Auto) 25 12-44 % Monocytes (%) (Auto) 7 0-12 % Eosinophils (%) (Auto) 1 0-10 % Basophils (%) (Auto) 1 0-10 % Neutrophils # (Auto) 4.2 1.8-7.8 10^3/uL Lymphocytes # (Auto) 1.5 1.0-4.0 10^3/uL Monocytes # (Auto) 0.4 0.0-1.0 10^3/uL Eosinophils # (Auto) 0.0 0.0-0.3 10^3/uL Basophils # (Auto) 0.0 0.0-0.1 10^3/uL Immature Granulocyte # (Auto) 0.0 0.0-0.1 10^3/uL Sodium Level 142 135-145 MMOL/L Potassium Level 3.5 L 3.6-5.0 MMOL/L Chloride Level 107 98-107 MMOL/L Carbon Dioxide Level 26 21-32 MMOL/L Anion Gap 9 5-14 MMOL/L Blood Urea Nitrogen 13 7-18 MG/DL Creatinine 0.87 0.60-1.30 MG/DL Estimat Glomerular Filtration Rate 81 BUN/Creatinine Ratio 15 Glucose Level 70 70-105 MG/DL Calcium Level 8.9 8.5-10.1 MG/DL Corrected Calcium 8.7 8.5-10.1 MG/DL Total Bilirubin 0.5 0.1-1.0 MG/DL Aspartate Amino Transf (AST/SGOT) 17 5-34 U/L Alanine Aminotransferase (ALT/SGPT) 18 0-55 U/L Alkaline Phosphatase 83 40-136 U/L Total Protein 7.4 6.4-8.2 GM/DL Albumin 4.2 3.2-4.5 GM/DL Hepatitis B Surface Antibody Index 107.49 >=12.00 mIU/mL Hepatitis Bs Antibody Interpret Immune Immune Hepatitis C Antibody Non-Reactive Non-Reactive HIV (1&2) Ag and Ab Screen Referral Non-Reactive Non-Reactive (MICKI ELIZABETH MD) Vital Signs/I&O 03/31/23 03/31/23 08:23 12:07 Temp 36.0 Pulse 92 Resp 16 B/P (MAP) 196/118 (144) 178/127 Pulse Ox 99 O2 Delivery Room Air (MICKI ELIZABETH MD) Vital Signs/I&O Capillary Refill : (IAIN HAMILTON) Blood Pressure Mean: 144 Progress Note : Progress Note Eufemia was initially interviewed and examined by me. Her employer had no protocols for managing body fluid exposures. She was referred to the emergency room. I discussed with the housekeeping supervisor. We have no specific protocols for nonemployee exposures. The guidelines for our employees are being employed for this patient. Care of this patient was transition to YANIRA Mathews upon the start of his shift. During her evaluation, she mentioned a sore on the lower anterior gums that has not healed over the past year. I evaluated this lesion and advised her to follow-up with her primary care provider and seek referral to ENT as this may need biopsied. Her dentist initially thought it was a canker sore, but it has not healed over the past year. (MICKI ELIZABETH MD) Departure Communication (PCP) Patient presents to ED with blood-borne pathogen exposure. 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 Protocol used was [place] blood-borne exposure process. She is up-to-date on her hepatitis vaccines. She states the person that she was working with has no known history of hepatitis or HIV. She did irrigate her eyes for 15 minutes with normal saline when she became in contact with a urine and blood. No evidence of eye irritation on exam. No visual changes. She d enies of any contact to her mouth. Denies needlestick. She has no current complaint. HIV, hepatitis CBC CMP was ordered. Updated her tetanus. Low risk as the patient that she was exposed to has no known history of hepatitis or HIV. At this time we will call with positive results. Recommend following up with [facility] for further evaluation of the results. If any developing symptoms such as fever ,vomiting, body aches, pains, abdominal pain to return back to ED. Incident was reported. Talk to physician with postexposure prophylactically hotline. #[phone]. At this time states patient is considered a low risk. She would not necessarily recommend treated prophylactically. She did suggest that they do a lab draw on the patient which would stop any further workup. However did suggest getting a hepatitis B antigen in 6 and 12 weeks, hep C in 24 weeks and HIV 6 and 12 weeks. Recommended no treatment prophylactically. (IAIN HAMILTON) Impression Primary Impression: Exposure to blood-borne pathogen Additional Impression: Oral mucosal lesion Disposition: 01 HOME, SELF-CARE Condition: Stable Departure-Patient Inst. Decision time for Depature: 11:32 (IAIN HAMILTON) Referrals: QUINTON MESSINA MD (PCP/Family) Primary Care Physician MARISELA BOWENS MD Patient Instructions: Blood or body fluid exposure Add. Discharge Instructions: Continue monitoring symptoms at home. If any change in symptoms such as fever vomiting visual changes body aches to return back to ED. Will call with positive results. Recommend following up with the ENT for the lip lesion All discharge instructions reviewed with patient and/or family. Voiced understanding. ATTENDING PHYSICIAN NOTE: I was physically present as attending physician in the emergency department during the care of this patient. I performed the initial interview and examinat ion with this patient and investigated appropriate management. Care was transitioned to YANIRA Mathews. See his notes for further documentation. (MICKI ELIZABETH MD) Copy Copies To 1: QUINTON MESSINA MD, ZACHARY A PA Mar 31, 2023 11:29 MICKI ELIZABETH MD Apr 02, 2023 11:30
[2023-03-31] MEDS ORDERED: Tetanus/Diphtheria/Pertussis (Acell) ADULT Vaccine 0.5 ML IM ONE (11:30)
[2023-03-31 11:53] LABS: BASOPHILS % (AUTO) 1 % (0-10); EOSINOPHILS % (AUTO) 1 % (0-10); HEMATOCRIT 46 % (35-52); LYMPHOCYTES # (AUTO) 1.5 10^3/uL (1.0-4.0); LYMPHOCYTES % (AUTO) 25 % (12-44); MEAN CORPUSCULAR HEMOGLOBIN 31 pg (25-34); MEAN CORPUSCULAR HGB CONC 33 g/dL (32-36); MEAN CORPUSCULAR VOLUME 93 fL (80-99); MEAN PLATELET VOLUME 8.7 fL (9.0-12.2); MONOCYTES # (AUTO) 0.4 10^3/uL (0.0-1.0); MONOCYTES % (AUTO) 7 % (0-12); NEUTROPHILS # (AUTO) 4.2 10^3/uL (1.8-7.8); NEUTROPHILS % (AUTO) 67 % (42-75); PLATELET COUNT 208 10^3/uL (130-400); WHITE BLOOD COUNT 6.2 10^3/uL (4.3-11.0)
[2023-03-31 12:02] LABS: ALBUMIN 4.2 GM/DL (3.2-4.5); POTASSIUM 3.5 MMOL/L (3.6-5.0)
[2023-03-31 12:03] LABS: CALCIUM 8.9 MG/DL (8.5-10.1)
[2023-03-31 12:05] LABS: TOTAL PROTEIN 7.4 GM/DL (6.4-8.2)
[2023-03-31 12:07] VITALS: BP 178/127
[2023-03-31 12:07] LABS: BILIRUBIN,TOTAL 0.5 MG/DL (0.1-1.0)
[2023-03-31 12:08] LABS: CREATININE SERUM 0.87 MG/DL (0.60-1.30)
[2023-03-31 21:13] LABS: HEPATITIS C ANTIBODY C Non-Reactive (Non-Reactive)
== END 2023-03-31 12:07 | disposition home or self-care (01) ==
LOC: EDUNIT# 08:14 → ER 08:16
DX: Z77.21 Contact with and (suspected) exposure to potentially hazardous body fluids (principal); E66.01 Morbid (severe) obesity due to excess calories; Z68.35 Body mass index [BMI] 35.0-35.9, adult; Z23 Encounter for immunization
CPT/HCPCS: 80053; 85025; 86803; 87350; 87389; 99284; G0499; 36415; 86706; 90715